=== PATIENT | male | born 1950 | race Caucasian/White ===

== ENCOUNTER 2019-04-09 07:08 | Emergency (ER) | payer OTHER ==
[2019-04-09 07:24] VITALS: BP 168/85
--- NOTE | 2019-04-09 07:43 | UC ---
Skin Complaint HPI - HPI Summary HPI Summary: 68-year-old male comes in with a chief complaint of a tender swollen area on his right occiput skin. Patient woke up this morning with the swollen area is tender to palpation. Is not sure if it was there yesterday. No fevers or chills feels well otherwise. No known trauma. - History of Current Complaint Chief Complaint: UCSkin Time Seen by Provider: 04/09/19 07:42 Stated Complaint: TENDER AREA ON SCALP Pain Intensity: 3 - Allergy/Home Medications Allergies/Adverse Reactions: Allergies Allergy/AdvReac Type Severity Reaction Status Date / Time No Known Allergies Allergy Verified 04/09/19 07:24 Home Medications: Home Medications Losartan Potassium 25 mg PO DAILY WITH MEAL 04/09/19 [History Confirmed 04/09/19 ] Rosuvastatin Calcium 20 mg PO DAILY WITH MEAL 04/09/19 [History Confirmed ] PMH/Surg Hx/FS Hx/Imm Hx Previously Healthy: Yes Endocrine History: Dyslipidemia Cardiovascular History: Hypertension - Surgical History Surgical History: Yes Surgery Procedure, Year, and Place: lithotripsy - Family History Known Family History: Positive: Non-Contributory - Social History Alcohol Use: Weekly Substance Use Type: None Smoking Status (MU): Never Smoked Tobacco Have You Smoked in the Last Year: No Review of Systems All Other Systems Reviewed And Are Negative: Yes Constitutional: Positive: Negative Skin: Positive: Other - SEE HPI Eyes: Positive: Negative ENT: Positive: Negative Respiratory: Positive: Negative Cardiovascular: Positive: Negative Gastrointestinal: Positive: Negative Motor: Positive: Negative Neurovascular: Positive: Negative Musculoskeletal: Positive: Negative Neurological: Positive: Negative Psychological: Positive: Negative Is Patient Immunocompromised?: No Physical Exam Triage Information Reviewed: Yes Appearance: Well-Appearing, No Pain Distress, Well-Nourished Vital Signs: Initial Vital Signs Temp 98.3 F 04/09/19 07:18 Pulse 106 04/09/19 07:18 Resp 18 04/09/19 07:18 BP 168/85 04/09/19 07:18 Pulse Ox 100 04/09/19 07:18 Vital Signs Reviewed: Yes Eye Exam: Normal Eyes: Positive: Conjunctiva Clear Neck: Positive: Supple Respiratory: Positive: No respiratory distress Musculoskeletal: Positive: Strength Intact, ROM Intact Neurological: Positive: Alert Psychological: Positive: Age Appropriate Behavior Skin: Positive: Other - On the right occiput and scalp there is a 1.5 cm elevated swollen erythematous area consistent with an infected hair follicle. There is no streaking there is no drainage. Is no sufficient fluctuance for incision and drainage. Course/Dx - Diagnoses Provider Diagnosis: Folliculitis Discharge ED - Sign-Out/Discharge Documenting (check all that apply): Patient Departure All imaging exams completed and their final reports reviewed: No Studies - Discharge Plan Condition: Stable Disposition: HOME Prescriptions: Cephalexin CAP* [Keflex CAP*] 500 mg PO TID #30 cap Patient Education Materials: Folliculitis (ED) Referrals: Jj Carranza MD [Primary Care Provider] - Additional Instructions: FOLLOW UP WITH YOUR DOCTOR IF NOT COMPLETELY IMPROVED. GET RECHECKED SOONER IF YOUR CONDITION WORSENS OR ANY QUESTIONS OR CONCERNS. - Billing Disposition and Condition Condition: STABLE Disposition: Home
== END 2019-04-09 07:49 | disposition home or self-care (01) ==
LOC: UCEAST 07:08
DX: L73.9 Follicular disorder, unspecified (principal); E78.5 Hyperlipidemia, unspecified; I10 Essential (primary) hypertension
CPT/HCPCS: 99202; G0463